=== PATIENT | female | born 1955 | race Caucasian/White ===

== ENCOUNTER → 2017-09-27 | Outpatient (CLI) | payer BC ==
[2017-09-27 14:38] LABS: BASO # 0.1 (0.02-0.10); EOS # 0.2 (0.04-0.40); EOS % 5.2 % (1.0-5.0); HEMATOCRIT 44.5 % (37.0-47.0); HEMOGLOBIN 14.1 g/dL (12.5-16.0); MEAN CELL VOLUME 98 fl (78-100); MEAN CORPUSCULAR HEMOGLOBIN 31 pg (27-31); MEAN CORPUSCULAR HGB CONC 32 g/dL (33-37); MEAN PLATELET VOLUME 11.1 fl (7.4-10.4); MONO # 0.4 (0.20-0.80); NEU # 1.9 (1.40-6.50); PLATELET COUNT 207 K/mm3 (130-400); RED BLOOD COUNT 4.55 M/mm3 (4.10-5.30); RED CELL DISTRIBUTION WIDTH 14.2 % (11.5-14.5); WHITE BLOOD COUNT 3.2 K/mm3 (4.8-10.8)
[2017-09-27 14:43] LABS: LYMPH# 0.7 (1.50-4.00)
[2017-09-27 14:51] LABS: ALBUMIN 3.6 g/dL (3.5-5.0); BUN/CREATININE RATIO 16.1 (6.0-26.0); CALCIUM 9.1 mg/dL (8.4-10.2); POTASSIUM 4.5 mmol/L (3.6-5.0); TOTAL BILIRUBIN 0.6 mg/dL (0.2-1.3); TOTAL PROTEIN 6.8 g/dL (6.3-8.2)
[2017-09-27 16:25] LABS: ERYTHROCYTE SEDIMENTATION RATE 4 mm/hr (0-30)
== END ==
LOC: LAB 08:46
PROVIDERS: Internal Medicine
DX: Z00.00 Encounter for general adult medical examination without abnormal findings (principal); Z12.11 Encounter for screening for malignant neoplasm of colon

== ENCOUNTER → 2020-10-07 | Outpatient (CLI) | payer MEDICARE, BC ==
[2020-10-07 08:25] LABS: BASO # 0.04 (0.02-0.10); EOS # 0.19 (0.04-0.40); EOS % 6.2 % (1.0-5.0); HEMATOCRIT 46.8 % (37.0-47.0); HEMOGLOBIN 14.7 g/dL (12.5-16.0); MEAN CELL VOLUME 99 fl (78-100); MEAN CORPUSCULAR HEMOGLOBIN 31 pg (27-31); MEAN CORPUSCULAR HGB CONC 31 g/dL (33-37); MEAN PLATELET VOLUME 10.3 fl (7.4-10.4); MONO # 0.38 (0.20-0.80); NEU # 1.67 (1.40-6.50); PLATELET COUNT 214 K/mm3 (130-400); RED BLOOD COUNT 4.74 M/mm3 (4.10-5.30); RED CELL DISTRIBUTION WIDTH 13.6 % (11.5-14.5); WHITE BLOOD COUNT 3.1 K/mm3 (4.8-10.8)
[2020-10-07 08:49] LABS: ALBUMIN 3.7 g/dL (3.4-4.8); POTASSIUM 4.5 mmol/L (3.5-5.1)
[2020-10-07 08:50] LABS: CALCIUM 9.4 mg/dL (8.3-10.5)
[2020-10-07 08:51] LABS: TOTAL PROTEIN 6.4 g/dL (6.2-8.1)
[2020-10-07 08:53] LABS: TOTAL BILIRUBIN 0.7 mg/dL (0.2-1.2)
== END ==
LOC: LAB 08:00
PROVIDERS: Internal Medicine
DX: Z00.00 Encounter for general adult medical examination without abnormal findings (principal); Z12.11 Encounter for screening for malignant neoplasm of colon

== ENCOUNTER → 2020-11-05 | Outpatient (CLI) | payer MEDICARE, BC | LOC: MAMMO 13:45 | DX: Z12.31 Encounter for screening mammogram for malignant neoplasm of breast (principal); Z13.820 Encounter for screening for osteoporosis ==

== ENCOUNTER 2021-04-29 20:25 | Emergency (ER) | payer MEDICARE, BC ==
[~2021-04-29] VITALS: Ht 157.5 cm; Wt 84.1 kg
[2021-04-29 22:02] VITALS: BP 155/81
[2021-04-30] MEDS ORDERED: MORGIDOX 1X100100 MG PO (00:38)
[2021-04-30] MEDS ORDERED: PEPCID40 M1 PO (00:39)
[2021-04-30] MEDS ORDERED: ESTERIFIED ESTR PO (00:39)
[2021-04-30] MEDS ORDERED: VITAMIN D3250 MC2 PO (00:40)
[2021-04-30] MEDS ORDERED: FISH OIL 1,0001 EAC2 PO (00:40)
== END 2021-04-29 22:02 | disposition home or self-care (01) ==
LOC: ED 20:25
DX: K21.9 Gastro-esophageal reflux disease without esophagitis (principal); J06.9 Acute upper respiratory infection, unspecified; J45.909 Unspecified asthma, uncomplicated; Z20.822 Contact with and (suspected) exposure to COVID-19
CPT/HCPCS: Q9967

== ENCOUNTER → 2021-04-29 | Outpatient (CLI) | payer MEDICARE, BC ==
[~2021-04-29] MED LIST: ESTERIFIED ESTR PO; FISH OIL 1,0001 EAC2 PO; MORGIDOX 1X100100 MG PO; PEPCID40 M1 PO; VITAMIN D3250 MC2 PO
[2021-04-29 13:04] LABS: BASO # 0.03 K/mm3 (0.02-0.10); EOS # 0.13 K/mm3 (0.04-0.40); HEMATOCRIT 44.4 % (37.0-47.0); HEMOGLOBIN 14.1 g/dL (12.5-16.0); LYMPH# 0.86 K/mm3 (1.50-4.00); MEAN CELL VOLUME 99 fl (78-100); MEAN CORPUSCULAR HEMOGLOBIN 32 pg (27-31); MEAN CORPUSCULAR HGB CONC 32 g/dL (33-37); MEAN PLATELET VOLUME 10.5 fl (7.4-10.4); MONO # 0.46 K/mm3 (0.20-0.80); NEU # 1.77 K/mm3 (1.40-6.50); PLATELET COUNT 221 K/mm3 (130-400); RED BLOOD COUNT 4.47 M/mm3 (4.10-5.30); RED CELL DISTRIBUTION WIDTH 13.7 % (11.5-14.5); WHITE BLOOD COUNT 3.3 K/mm3 (4.8-10.8)
[2021-04-29 13:17] LABS: POTASSIUM 4.6 mmol/L (3.5-5.1); SODIUM 141 mmol/L (136-145)
[2021-04-29 13:18] LABS: CALCIUM 9.6 mg/dL (8.3-10.5)
[2021-04-29 13:19] LABS: GLUCOSE 84 mg/dL (65-105)
[2021-04-29 13:20] LABS: CARBON DIOXIDE 27 mmol/L (23-31)
[2021-04-29 13:21] LABS: TOTAL BILIRUBIN 0.5 mg/dL (0.2-1.2)
[2021-04-29 13:24] LABS: AST-SGOT 19 U/L (5-34)
[2021-04-29 13:25] LABS: ALT/SGPT 16 U/L (0-55)
[2021-04-29 13:34] LABS: TROPONIN-I < 0.030 ng/mL (<0.030)
[2021-04-29 15:59] LABS: D-DIMER 0.86 mg/L FEU (0.15-0.50)
== END ==
LOC: LAB 12:27
PROVIDERS: Nurse Practitioner Family
DX: R07.9 Chest pain, unspecified (principal); Z20.822 Contact with and (suspected) exposure to COVID-19

== ENCOUNTER → 2023-09-20 | Outpatient (CLI) | payer MEDICARE, BC ==
[2023-09-20 08:05] LABS: HEMATOCRIT 44.3 % (37.0-47.0); MEAN CELL VOLUME 100 fl (78-100); MEAN CORPUSCULAR HEMOGLOBIN 32 pg (27-31); MEAN CORPUSCULAR HGB CONC 32 g/dL (33-37); MEAN PLATELET VOLUME 10.4 fl (7.4-10.4); PLATELET COUNT 153 K/mm3 (130-400); RED BLOOD COUNT 4.43 M/mm3 (4.10-5.30); RED CELL DISTRIBUTION WIDTH 13.2 % (11.5-14.5); WHITE BLOOD COUNT 2.1 K/mm3 (4.8-10.8)
[2023-09-20 08:11] LABS: ALBUMIN 3.8 g/dL (3.4-4.8)
[2023-09-20 08:12] LABS: CALCIUM 10.2 mg/dL (8.3-10.5)
[2023-09-20 08:13] LABS: TOTAL PROTEIN 6.6 g/dL (6.2-8.1)
[2023-09-20 08:15] LABS: TOTAL BILIRUBIN 0.7 mg/dL (0.2-1.2)
[2023-09-20 08:20] LABS: MAGNESIUM 2.23 mg/dL (1.60-2.60)
[2023-09-20 08:32] LABS: LYMPHOCYTE 32 % (20-51); MONOCYTE 15 % (3-10); NEUTROPHILS 46 % (42-75)
== END ==
LOC: LAB 07:53
PROVIDERS: Internal Medicine
DX: Z12.11 Encounter for screening for malignant neoplasm of colon (principal); K90.9 Intestinal malabsorption, unspecified; E78.2 Mixed hyperlipidemia